=== PATIENT | female | born 1950 | race African-American/Black ===

== ENCOUNTER 2017-09-14 20:38 | Emergency (ER) | payer OTHER ==
[2017-09-14] MEDS ORDERED: Propofol 1,000 MG/100 ML VIAL IV ONE (21:03)
[2017-09-14] MEDS ORDERED: Rocuronium Bromide 50 MG/5 ML VIAL ONE (21:08)
[2017-09-14] MEDS ORDERED: Lidocaine 1% (PF) 30 ML VIAL ONE (21:12)
[2017-09-14] MEDS ORDERED: Norepinephrine 8 MG/0.9% NS 250 ML ONE (21:18)
[2017-09-14 21:34] LABS: Actual Bicarbonate (HCO3a) 19.2 mEq/L (22-26); O2 Tension (PaO2) 246.2 mmHg (80.0-100.0); pH, Arterial 7.23 (7.35-7.45)
[2017-09-14 21:35] LABS: Base Excess (BEa) -8.1 mEq/L (0 (+/-) 2.5); Hematocrit-ABG 32.2 % (36.0-47.0); Hemoglobin (Hb) 10.2 g/dL (12.0-16.0)
[2017-09-14 21:36] LABS: Calcium, Ionized 1.1 mmol/L (1.12-1.30); Puncture Site RR
[2017-09-14] MEDS ORDERED: Magnesium Sulfate 2 GM/100 ML BAG ONE (21:36)
[2017-09-14 21:41] LABS: #Basophils 0.1 thou/uL (0.0-0.2); #Eosinphils 0.1 thou/uL (0.0-0.7); #Lymphocytes 3.1 thou/uL (1.20-3.40); #Monocytes 0.2 thou/uL (0.11-0.59); #Neutrophils 3.4 thou/uL (1.40-6.50); %Basophils 0.8 % (0.0-1.0); %Eosinophils 0.9 % (0.0-10.0); %Lymphocytes 45.3 % (21.0-51.0); %Monocytes 2.9 % (0.0-10.0); %Neutrophils 50.1 % (42.0-75.0); Hemoglobin 9.4 g/dL (12.0-16.0); Mean Corpuscular HGB CONC 30.9 g/dL (32.0-36.0); Mean Corpuscular Hemoglobin 29.2 pg (27.0-31.0); Mean Corpuscular Volume 94.6 fl (81.0-99.0); Mean Platelet Volume 7.2 fL (7.4-10.4); Platelet Count 173 thou/uL (130-400); RBC Distribution Width 12.4 % (11.5-14.5); Red Blood Cell (RBC) Count 3.21 mill/uL (4.20-5.40); White Blood Cell (WBC) Count 6.8 thou/uL (4.8-10.8)
[2017-09-14] MEDS ORDERED: EPINEPHrine 4 MG in Dextrose 5% in Water 250 ML IV SCH (21:45)
[2017-09-14 22:11] LABS: ALT (SGPT) 27 U/L (8-55); AST (SGOT) 23 U/L (5-34); Albumin 2.8 g/dL (3.4-4.8); Alkaline Phosphatase 90 U/L (40-150); Anion Gap 16 mmol/L (10-20); BUN (Urea Nitrogen) 28 mg/dL (9.8-20.1); Bilirubin, Total 0.3 mg/dL (0.2-1.2); Calc. Creatinine Clearance 0 mL/min (70-130); Calcium 7.2 mg/dL (7.8-10.44); Carbon Dioxide 18 mmol/L (23-31); Chloride 112 mmol/L (98-107); Estimated GFR-MDRD 35; Globulin 2.1 g/dL (2.4-3.5); Glucose 332 mg/dL (80-115); Protein, Total 4.9 g/dL (6.0-8.3); Sodium 143 mmol/L (136-145)
[2017-09-14 22:44] LABS: CKMB 1.4 ng/mL (0-6.6); Troponin I 0.018 ng/mL (< 0.028)
[2017-09-14 22:57] LABS: Potassium 2.9 mmol/L (3.5-5.1)
--- NOTE | 2017-09-15 02:33 | CON ---
DATE OF CONSULTATION: 09/14/2017 HISTORY OF PRESENT ILLNESS: The patient is being seen in the emergency room. I was called to the em ergency room for an acute inferior myocardial infarction in this 66-year-old female. The history is that she was found at home today. She had a syncopal episode at home. She had been out in the heat for 4-5 hours. She then went inside. Her said she collapsed and then she started shaking al l over. He then apparently did some CPR. She came back around, said she was okay, and about 15 mar alison later, the same episode occurred. He had already called 911. Then, she had another episode. He again performed some type of CPR and the ambulance arrived. EKG showed rapid heart rate and what ap peared to be atrial flutter, almost a heart rate of 140-150 beats per minute. She was taken to the e mergency room, where she has been coded now about 6 or 7 times. The blood pressure has been unstable . She is on Levophed and epinephrine drip and continues to be unresponsive. She is not responding t o medical therapy despite multiple CPRs and medical management in the emergency room. Her blood pres sure when she arrived to the emergency room was around 200, then decreased to 130s and 90s, and witho ut the epinephrine she has no blood pressure essentially. She has had CPR now about 8 times while be ing in the emergency room. The family has been informed that this is very dismal prognosis and she i s most likely not to survive and is not a candidate for the cardiac lab head at this time. Her EKG s howed some nonspecific changes with a right bundle-branch block and most likely the patient has suffe red some type of myocardial infarction. The enzymes are still pending as well as the electrolytes ar e still pending. She does have a history of diabetes and hypertension. The said she had had no previous history of heart disease, but she had apparently told some family member that she had be en having some chest pain for about a week and she has been having increasing shortness of breath. PAST MEDICAL HISTORY: As far as we can tell is positive for diabetes, hypertension, COPD. She had s ome gangrene on the right toe, but she has had no other significant operations or illnesses. SOCIAL HISTORY: She is . She has 13 children. She did smoke in the past, but stopped about 30 years ago. She had no alcohol use that we are aware of. FAMILY HISTORY: Noncontributory at this time, but she does have some grandchildren actually who have also suffered myocardial infarctions. ALLERGIES: None. MEDICATIONS: He is uncertain. He said she was taking 7 different medications. She was taking potas sium. She was taking blood pressure medications and medications for her diabetes. REVIEW OF SYSTEMS: According to the family, she has been complaining of having some leg cramps at [facility]. She has anxiety. She has been complaining of dizziness, diarrhea, shortness of breath, and tianna arently some chest discomfort. Otherwise, neurologically she had had no seizures or syncope until to day. PHYSICAL EXAMINATION: GENERAL: Reveals an elderly -[place] female. Her blood pressure is unstable. Her heart rat es as noted above were anywhere between 140 on admission to the emergency room and then now has been fluctuating. When she is off the epinephrine, her heart rate goes to about 60s and 70s, as well as h er blood pressure becomes less than 70 systolically without CPR and medications. The patient is intu bated and CPR is in progress. LUNGS: I did not hear any specific lung sounds that would be unusual. She is on the ventilator. CARDIOVASCULAR: Heart sounds are very distant. She is a very obese female. Echocardiogram was perf ormed. There is minimal movement of the myocardium. ABDOMEN: Obese with positive bowel sounds. EXTREMITIES: No clubbing or cyanosis. Pulses were present femorally and on the radial when CPR is i n progress and with epinephrine. NEUROLOGIC: Obviously, the patient is unresponsive. Her pupils are only slightly reactive. IMPRESSION: 1. Possible acute myocardial infarction with cardiopulmonary resuscitation in progress. It does not appear that she will likely survive this and is not a candidate at this time to be taken to the card iac lab head with continuous CPR in progress. 2. What appears to be right bundle-branch block. We do not know whether this is old or new. 3. What appeared to be atrial flutter, which has converted to sinus rhythm. 4. Diabetes. 5. Hypertension. 6. Morbid obesity. If the patient should improve, I would be more than happy to take her to the cardiac lab head, but it appears that her situation is probably terminal. If there are further updates, then this will also be included in the dictation at later date.
--- NOTE | 2017-09-16 11:48 | EKG ---
Test Reason : Blood Pressure : / mmHG Vent. Rate : 052 BPM Atrial Rate : 052 BPM P-R Int : 286 ms QRS Dur : 148 ms QT Int : 456 ms P-R-T Axes : 091 071 078 degrees QTc Int : 424 ms Sinus bradycardia with 1st degree A-V block with Fusion complexes Right bundle branch block ST elevation consider inferolateral injury or acute infarct * ACUTE AK * Abnormal ECG Confirmed by GLORIA AMAYA ([id number]), newspaper copy editor MILO MULLER ([id number]) on 09/16/2017 11:47:21 AM Referred By: Confirmed By:GLORIA AMAYA
== END 2017-09-14 22:13 | disposition expired ==
LOC: ERS 20:38
DX: I46.9 Cardiac arrest, cause unspecified (principal); E11.9 Type 2 diabetes mellitus without complications; I10 Essential (primary) hypertension; J44.9 Chronic obstructive pulmonary disease, unspecified; F41.9 Anxiety disorder, unspecified; F32.9 Major depressive disorder, single episode, unspecified
CPT/HCPCS: 31500; 36556; 80053; 82553; 82805; 83605; 83880; 84484; 85025; 92950; 93005; 94002; 94760; 96365; 96375; 96376; 99292; J0171; J1644; J2001; J2704; J3475; J7070